=== PATIENT | male | born 1940 | race Caucasian/White ===

== ENCOUNTER 2018-11-20 19:36 | Inpatient (IN) ==
[2018-11-20] MEDS ORDERED: NS 1,000 ML IV ONE (20:08)
[2018-11-20] MEDS ORDERED: SODIUM CHLORIDE 0.9% INJ ONE (20:09)
[2018-11-20] MEDS ORDERED: ROCEPHIN 1 GM in NS 50 ML IV ONE (20:09)
[2018-11-20] MEDS ORDERED: PROTONIX IV ONE (20:09)
[2018-11-20] MEDS ORDERED: MORPHINE IV ONE (20:10)
[2018-11-20 20:30] LABS: INR 0.87; PROTIME 12.5 Seconds (11.0-16.0)
[2018-11-20 20:36] LABS: BASO# 0.05 X1000 (0.0-0.2); BASO% 0.6 % (0.0-0.8); EOS# 0.23 X1000 (0.0-0.7); EOS% 2.6 % (0.0-10.0); HEMATOCRIT 40.8 % (42.0-52.0); HEMOGLOBIN 13.2 g/dL (14.0-18.0); IMM GRAN# 0.02 X1000 (0.0-0.04); IMM GRAN% 0.2 % (0.0-0.5); LYMPH# 2.03 X1000 (1.2-3.4); LYMPH% 22.8 % (20.5-51.1); MCH 29.5 PG (27-31); MCHC 32.4 g/dL (33-37); MCV 91.1 FL (81-99); MONO# 0.95 X1000 (0.11-0.59); MONO% 10.7 % (1.7-9.3); MPV 9.2 FL (7.4-10.4); NEUT# 5.63 X1000 (1.4-6.5); NEUT% 63.1 % (42.2-75.2); PLT 336 X1000 (130-400); RBC 4.48 XMIL (4.7-6.1); RDW 15.4 % (11.5-14.5); WBC 8.91 X1000 (4.8-10.8)
[2018-11-20 20:59] LABS: AGAP 10; ALB/GLOB RATIO 1.9; ALBUMIN 3.8 g/dL (3.5-5.0); ALKALINE PHOSPHATASE 43 U/L (32-122); BUN 19 mg/dL (8-22); CALCIUM 8.6 mg/dL (8.8-10.2); CHLORIDE 101 mmol/L (98-107); COSMO 281; CREATININE 1.1 mg/dL (0.7-1.2); ESTIMATED GFR > 60; GLUCOSE 156 mg/dL (70-104); GOT 18 U/L (10-34); GPT 21 U/L (10-44); POTASSIUM 4.2 mmol/L (3.5-5.1); SODIUM 138 mmol/L (136-145); TCO2 27 mmol/L (25-35); TOTAL BILIRUBIN 0.22 mg/dL (0.20-1.00); TOTAL PROTEIN 5.8 g/dL (6.3-8.3)
[2018-11-20] MEDS ORDERED: GOLYTELY PO ONE (21:05)
--- NOTE | 2018-11-20 21:45 | Diag Imaging Result Doc PS360 ---
EXAM: CT ABDOMEN/PELVIS W/O CONTRAST - 11/20/2018 HISTORY: abd pain, lower GI bleed TECHNIQUE: CT abdomen/pelvis without contrast. No contrast administered per request of the referring provider. COMPARISON: With contrast CT abdomen/pelvis of 08/21/2013 FINDINGS: There are no acute changes identified in the liver, spleen,, adrenal glands, or pancreas. There is a 2.5 cm low-density left adrenal lesion which is labeled compatible with adenoma. There are no calcified gallstones or pericholecystic inflammation identified. There is no renal stone or hydronephrosis identified. There are no substantially enlarged lymph nodes identified. There are atherosclerotic calcifications noted. 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 There is no retroperitoneal hematoma identified. There is no evidence of bowel obstruction. The appendix is unremarkable. There is colonic diverticulosis which is most extensive along the sigmoid. There is no evidence of diverticulitis. There is no free air, free fluid, or abscess identified. IMPRESSION: Colonic diverticulosis which is most extensive along the sigmoid. No evidence of diverticulitis. Stable 2.5 cm left adrenal adenoma. 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 This exam was performed using automated exposure control, adjustment of mA or kV according to patient size, and/or use of iterative reconstruction technique. Electronically signed by Bernardino Hamlin 11/20/2018 9:42 PM
[2018-11-20] MEDS ORDERED: DUONEB (A & A) INH PRN (23:26)
[2018-11-20] MEDS ORDERED: NS 1,000 ML IV SCH (23:26)
[2018-11-20] MEDS ORDERED: ZOFRAN IV PRN (23:26)
[2018-11-21] MEDS: SODIUM CHLORIDE 0.9% INJ SCH ×3 (00:08→23:41)
[2018-11-21] MEDS: PROTONIX IV SCH ×3 (00:08→23:41)
--- NOTE | 2018-11-21 00:48 | PROVIDER DOCUMENTATION ---
This chart was entered by Josefina Brown Scribe, acting as scribe for Dave Fagan MD. HPI-Abdominal Pain/GI Problem - General Chief Complaint: GI Bleed Stated Complaint: RECTAL BLEEDING/S/P COLONOSCOPY WEDNESDAY Time Seen by Provider: 11/20/18 19:47 Source: patient Allergies/Adverse Reactions: Patient Allergies Allergy/AdvReac Type Severity Reaction Status Date / Time No Known Allergies Allergy Verified 09/13/15 07:53 Home Medications: Home Medication List Medication Instructions Recorded Confirmed Last Taken Type Allopurinol 100 mg PO QAM 06/26/12 11/20/18 11/20/18 09:00 History Clopidogrel [Plavix] 75 mg PO QAM 06/26/12 11/20/18 11/20/18 09:00 History Cyanocobalamin (Vitamin B-12) 1,000 mcg PO QAM 06/26/12 11/20/18 11/20/18 09:00 History [B-12] Fish Oil/Dha/Epa [Fish Oil 1,200 1 cap PO QAM 06/26/12 11/20/18 11/20/18 09:00 History mg Fish Oil] Fluticasone/Salmeterol [Advair 1 each IH BID 06/26/12 11/20/18 11/20/18 09:00 History 250-50 Diskus] Furosemide [Lasix] 20 mg PO QAM 06/26/12 11/20/18 11/20/18 09:00 History Simvastatin 20 mg PO QAM 06/26/12 11/20/18 11/20/18 09:00 History Amlodipine [Norvasc] 5 mg PO QAM 08/02/14 11/20/18 11/20/18 09:00 History Metoprolol Tartrate 50 mg PO QAM 10/22/14 11/20/18 11/20/18 09:00 History Aspirin 81 mg PO DAILY 09/13/15 11/20/18 11/20/18 09:00 History Prednisone 10 mg PO DAILY #21 tab 10/19/18 11/20/18 11/03/18 Rx - History of Present Illness-ABD Nature of Presenting Problems: Patient is a 78 year old male who presents to the ED with generalized lower abdominal pain and rectal bleeding. Patient states symptoms started this morning. Patient states having a colonoscopy and having a mass removed 5 days ago. Patient denies nausea and vomiting. Patient states black stool and bright red blood. Abdominal Pain Onset Location: reports: other (generalized lower) Pain Radiation: reports: no radiation Quality of Pain: reports: aching Severity in ED: reports: mild Onset/Duration: reports: this morning Timing: reports: still present Activities at Onset: reports: light activity Modifying Factors: improves with: nothing Associated Symptoms: reports: denies symptoms Last BM: this afternoon Dark Stools Present?: reports: black Rectal Bleeding: reports: other (bright red blood) Rectal Pain: reports: none Emesis Description: reports: none Bruising or Bleeding Gums?: No Similar Symptoms Previously?: No Recently seen or treated by another doctor?: Yes Review of Systems - Adult - REVIEW OF SYSTEMS - ADULT Constitutional: reports: no symptoms reported Eyes: reports: no symptoms reported Ears, Nose, Mouth & Throat: reports: no symptoms reported Cardiovascular: reports: no symptoms reported Respiratory: reports: no symptoms reported Gastrointestinal: reports: abdominal pain (generalized lower), rectal bleeding. denies: nausea, vomiting Integumentary: reports: no symptoms reported Neurological: reports: no symptoms reported Psychiatric: reports: no symptoms reported Hematologic/Lymphatic: reports: no symptoms reported Allergic/Immunologic: reports: no symptoms reported Past History - Adult - PAST MEDICAL HISTORY-ADULT Review of Records: reports: Old Records Reviewed, Nursing Assessment Review, Medications Reviewed, Social history reviewed & non-contributory. Major Childhood Illnesses: reports: denies history Cardiovascular: reports: CAD, CHF, HTN, hyperlipidemia, SD Respiratory: reports: COPD Gastrointestinal: reports: GERD Obstetrical/Gynecological: reports: denies history Genitourinary: reports: denies history Musculoskeletal: reports: denies history Neurological: reports: denies history Endocrine/Immune: reports: Diabetes Other Conditions: reports: denies history - PRIOR SURGERIES/PROCEDURES Surgical/Procedure History: reports: cardiac stent, back/neck - IMMUNIZATION STATUS Childhood Immunizations: See Nurse Assessment Flu Vaccine: See Nurse Assessment - FAMILY HISTORY Family History: reviewed, not pertinent - SOCIAL HISTORY Smoking: cigarettes (former) Substance Use: denies Physical Exam-General - PHYSICAL EXAM-ADULT Initial Vital Signs Reviewed: Yes - CONSTITUTIONAL General Appearance: alert, no apparent distress - HEAD, EARS, NOSE, MOUTH & THROAT HENMT: moist mucous membranes - RESPIRATORY Respiratory: chest non-tender, lungs clear, normal breath sounds - CARDIOVASCULAR Cardiovascular: normal peripheral pulses, regular rate, rhythm - GASTROINTESTINAL (ABDOMEN) Abdominal Exam: abnormal bowel sounds (hyperactive), tenderness (diffuse lower abdominal tenderness) - GENITOURINARY Rectal Exam: black stool, other (bright red blood present on anus. BRUNILDA Godoy, chaperoning rectal exam.) - MUSCULOSKELETAL Extremity: non-tender, normal inspection - SKIN Integumentary: normal color, normal turgor, warm/dry - NEUROLOGIC Neurologic: grossly normal - PSYCHIATRIC Psych/Mental Status: normal mood/affect, oriented x 3 Progress - PLAN OF CARE/RESULTS Progress/Plan/Lab Results: Vital Signs - 8 hr 11/20/18 19:43 Temperature 97.7 F Pulse Rate 69 Respiratory Rate 18 Blood Pressure 130/89 O2 Sat by Pulse Oximetry 96 Laboratory Results - last 24 hr 11/20/18 20:12 PT 12.5 INR 0.87 Orders Category Date Time Status NPO Diet 11/22/18 Diet Enter Time Active CBC WITH ELECTRONIC DIFF [HEME] Stat Lab 11/20/18 20:12 Results CMP [COMPREHENSIVE METABOLIC PANEL] [CHEM] Stat Lab 11/20/18 20:12 Received OCCULT BLOOD DIAGNOSTIC [STOOL] Stat Lab 11/20/18 20:12 Received PROTIME WITH INR [COAG] Stat Lab 11/20/18 20:12 Completed TYPE & SCREEN [BBK] Stat Lab 11/20/18 20:12 Received 0.9% Sodium Chloride Inj [Ns] 1,000 ml Med 11/20/18 20:08 Active IV 999 mls/hr CefTRIAXONE [Rocephin] 1 gm Med 11/20/18 20:09 Active 0.9% Sodium Chloride Inj [Ns] 50 ml IV NOW Morphine Med 11/20/18 20:10 Discontinued 4 mg IV NOW ONE Pantoprazole [Protonix] Med 11/20/18 20:09 Discontinued 40 mg IV NOW ONE Sodium Chloride 0.9% Med 11/20/18 20:09 Discontinued 10 ml INJ NOW ONE Result Diagrams: 11/20/18 20:12 11/20/18 20:12 - CT/MRI 1 CT Study: Abdomen, Pelvis Impression: See EMR Report ( EXAM: CT ABDOMEN/PELVIS W/O CONTRAST - 11/20/2018 HISTORY: abd pain, lower GI bleed TECHNIQUE: CT abdomen/pelvis without contrast. No contrast administered per request of the referring provider. COMPARISON: With contrast CT abdomen/pelvis of 08/21/2013 FINDINGS: There are no acute changes identified in the liver, spleen,, adrenal glands, or pancreas. There is a 2.5 cm low-density left adrenal lesion which is labeled compatible with adenoma. There are no calcified gallstones or pericholecystic inflammation identified. There is no renal stone or hydronephrosis identified. There are no substantially enlarged lymph nodes identified. There are atherosclerotic calcifications noted. 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 There is no retroperitoneal hematoma identified. There is no evidence of bowel obstruction. The appendix is unremarkable. There is colonic diverticulosis which is most extensive along the sigmoid. There is no evidence of diverticulitis. There is no free air, free fluid, or abscess identified. IMPRESSION: Colonic diverticulosis which is most extensive along the sigmoid. No evidence of diverticulitis. Stable 2.5 cm left adrenal adenoma. 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 This exam was performed using automated exposure control, adjustment of mA or kV according to patient size, and/or use of iterative reconstruction technique. Electronically signed by Bernardino Hamlin 2018 9:42 PM 11/20/182141 Interpreting Physician: Bernardino Hamlin MD Dictated Date/Time: 11/20/182133 cc: Dave Fagan MD; None,PCP ) - CONSULTS/PCP/HOSPITALIST Notification #1 *Consult/PCP/Hospitalist*: Dr. Rajan Time Discussed: 21:01 Reason/Comments: Dr. Fagan consulted with Dr. Rajan about patient. Consult Disposition: other (colonoscopy tmw morning by Dr. Tillman.) #2 Consult: Dr. Torres Time Discussed: 21:11 Reason/Comments: Dr. Fagan consulted with Dr. Campos about patient. Consult Disposition: Admit, other (Dr. Campos states order a CT and call back with results.) Departure - Departure Date of Disposition Decision: 11/20/18 Time of Disposition Decision: 21:06 DIAGNOSIS: Fresh blood passed per rectum, Lower GI bleed Disposition: ADMITTED INPATIENT 09 Certified Medical Emergency: Emergent Condition: Serious - Critical Care Note This patient required my direct & personal management of CC.: No Attestation - Physician/ MELINDA Attestation Patient care was provided by Advanced Practice Provider:: No The physician spent face to face time with patient:: Yes Advanced Practice Provider documentation review:: Supervising physician onsite and consulted in the evaluation and care of this patient. The physician did have a face to face encounter with the patient. This chart was documented by the indicated scribe, (Josefina Brown Scribe) and accurately reflects the services I performed and decisions made by me, Dave Fagan MD, as attested by the provider's signature.
[2018-11-21 02:44] LABS: HEMATOCRIT 32.9 % (42.0-52.0); HEMOGLOBIN 10.5 g/dL (14.0-18.0)
[2018-11-21 02:45] LABS: HEMOGLOBIN A1C 5.9 % (4.8-6.0)
[2018-11-21 02:49] LABS: CALCIUM 7.8 mg/dL (8.8-10.2); CREATININE 1.3 mg/dL (0.7-1.2); POTASSIUM 4.5 mmol/L (3.5-5.1)
--- NOTE | 2018-11-21 03:10 | HISTORY AND PHYSICAL ---
PRIMARY CARE PROVIDER: None. TRAFFIC LAW ATTORNEY: Dr. Coleman. CHIEF COMPLAINT: Blood in the stool. HISTORY OF PRESENT ILLNESS: This is a 78-year-old male who comes into the emergency room. Has a past medical history of coronary artery disease status post stenting, COPD, CKD, diabetes mellitus type 2, hypertension, hyperlipidemia, who recently had a colonoscopy outpatient with Dr. Coleman. I believe this was 1-2 weeks ago. He initially felt fine afterwards. This morning, he got up and was having some abdominal discomfort. Had a bowel movement which was dark black but did have some bright red blood and clots in it. He stated that he had several more bowel movements that were very similar. He also had sharp abdominal cramping. He denied any other symptoms such as fever, chills, nausea, vomiting, hematemesis. Had no bladder complaints. He states that he did have a large polyp versus mass, I believe, removed during his colonoscopy. A CT was obtained which showed colonic diverticulosis most extensive along the sigmoid. No evidence of diverticulitis. His hemoglobin and hematocrit were stable. He will be admitted to the medical floor with GI consultation for further evaluation and treatment. PAST MEDICAL HISTORY: See HPI. PREVIOUS SURGICAL HISTORY: 1. Neck surgery from a neck fracture. 2. Left heart catheterization with stent placement. 3. Colonoscopy. FAMILY HISTORY: Positive for diabetes, hypertension and coronary artery disease. SOCIAL HISTORY: Stopped smoking in 1988. Was a 1 [id number] smoker for multiple years. Has occasional alcohol, does not drink daily. Denies IV drug use. ALLERGIES: No known drug allergies. HOME MEDICATIONS: A list of home medications has not been reconciled. The patient does take an 81 mg aspirin daily. He is also on metformin and I believe Lasix, metoprolol, omeprazole, simvastatin. Dosages are unknown. As noted, an order was placed for Nursing to reconcile home medications. These will be restarted when appropriate. REVIEW OF SYSTEMS: Fourteen point review of systems conducted with the patient. Pertinent positives listed above in the HPI. All other systems reviewed and found to be negative. PHYSICAL EXAMINATION: VITAL SIGNS: Temperature 97.7, pulse 69, respirations 18, blood pressure 130/89 , oxygen saturation 96% on room air. GENERAL: Very pleasant 78-year-old male lying in the ER stretcher, answered all questions appropriately. He is alert and oriented times 3. Family at bedside very attentive. He is in no acute distress. HEENT: Head is atraumatic, normocephalic. Pupils are equal, round, reactive to light. Extraocular eye movement is intact. Sclerae are anicteric. Conjunctiva is pink. Oral mucosa is moist. NECK: Supple. No JVD. No thyromegaly. Trachea is midline. No cervical lymphadenopathy. CARDIAC: S1, S2 appreciated. No murmurs, gallops, or rubs. LUNGS: Decreased bilaterally. Prolonged expiratory phase. No rhonchi, wheezes , rales. Symmetric rise and fall with respirations. ABDOMEN: Soft, nondistended, nontender to palpation. Hyperactive bowel sounds all 4 quadrants. No pulsatile mass. No organomegaly. EXTREMITIES: Trace bilateral lower extremity edema, nonpitting. No clubbing, cyanosis. Two-plus pedal pulses bilaterally. GENITOURINARY: No bladder distention. Patient voids. Otherwise deferred. NEUROLOGICAL: He is alert and oriented times 3. No focal or motor deficits noted. Otherwise nonfocal examination. INTEGUMENTARY: Appropriate color for race. No acute lesions or rash. DIAGNOSTIC DATA: CT of the abdomen shows colonic diverticulosis most extensive along the sigmoid. No evidence of diverticulitis. A stable 2.5 cm left adrenal adenoma. LABORATORY DATA: WBC 8.91. Hemoglobin 13.2. Hematocrit 40.8. Platelet count 336. Coagulation studies within normal limits. Chemistry within normal limits other than a glucose of 156. ASSESSMENT AND PLAN: 1. Gastrointestinal bleed. This appears to be a combination of upper and lower GI bleed. Clear liquids until midnight, NPO thereafter. Trend hemoglobin and hematocrit. They are stable at this point. Does not appear that he will need transfusion. Consult Dr. Rajan. Protonix 40 mg IV q.12 hours. 2. Diabetes mellitus type 2. We will hold metformin. Sliding scale insulin with fingerstick blood sugars. Check hemoglobin A1c. 3. Hyperlipidemia. Continue statin. 4. Hypertension. Continue home medication. 5. Chronic obstructive pulmonary disease. We will continue home nebulizers when these have been reconciled. He is not in exacerbation, will not need any steroids. Oxygen per protocol. 6. Coronary artery disease. Continue home medications. Further recommendations per patient clinical course. Dictated by JORGE Das for Raffi Torres MD cc: JORGE Das Agree with the above. The following is my on face to face assessment. Patient with recent colonoscopy and large polyp/mass removal. now with melena and bright red blood per rectum. endorses some crampy abd pain but no tenderness on exam and CT without clear evidence of perforation. will keep npo, place on protonix drip, monitor blood counts, and consult GI for likely endoscopy. CARRIED
[2018-11-21] MEDS: HUMALOG SUBQ SCH ×3 (06:44→16:30)
[2018-11-21 08:39] LABS: HEMATOCRIT 30.2 % (42.0-52.0); HEMOGLOBIN 9.3 g/dL (14.0-18.0)
[2018-11-21] MEDS ORDERED: XYLOCAINE-MPF 2% ONE (10:15)
[2018-11-21] MEDS ORDERED: DIPRIVAN 1% ONE (10:15)
[2018-11-21] MEDS ORDERED: FENTANYL ONE (10:16)
[2018-11-21] MEDS ORDERED: EPHEDRINE ONE (11:00)
[2018-11-21] MEDS ORDERED: EPINEPHRINE SYRINGE ONE (11:14)
[2018-11-21] MEDS: LOPRESSOR PO SCH (12:44)
[2018-11-21] MEDS: ZOCOR PO SCH (12:44)
[2018-11-21] MEDS: ZYLOPRIM PO SCH (12:44)
[2018-11-21] MEDS: NORCO-5 PO SCH (12:45)
[2018-11-21] MEDS: NS 1,000 ML IV SCH (14:10)
[2018-11-21 15:28] LABS: BASO# 0.05 X1000 (0.0-0.2); BASO% 0.6 % (0.0-0.8); EOS# 0.13 X1000 (0.0-0.7); EOS% 1.5 % (0.0-10.0); HEMATOCRIT 25.9 % (42.0-52.0); IMM GRAN# 0.03 X1000 (0.0-0.04); IMM GRAN% 0.4 % (0.0-0.5); LYMPH# 1.71 X1000 (1.2-3.4); LYMPH% 20.4 % (20.5-51.1); MCH 29.6 PG (27-31); MCHC 30.9 g/dL (33-37); MCV 95.9 FL (81-99); MONO# 0.92 X1000 (0.11-0.59); MPV 9.3 FL (7.4-10.4); NEUT# 5.55 X1000 (1.4-6.5); NEUT% 66.1 % (42.2-75.2); PLT 278 X1000 (130-400); RDW 15.8 % (11.5-14.5); WBC 8.39 X1000 (4.8-10.8)
--- NOTE | 2018-11-21 15:35 | OPERATIVE NOTE ---
PROCEDURE DATE: 11/21/2018 REQUESTING PHYSICIAN: Dr. Padilla. PRIMARY CARE DOCTOR: Dr. Bills. PRIMARY STUDIO MANAGER: Dr. Coleman. PREOPERATIVE DIAGNOSES: 1. Rectal bleeding. 2. Colonoscopy on 11/15/2018 had a polypectomy at hepatic flexure. 3. History of aspirin use, last dose was 2 days ago. 4. Anemia with a drop in hematocrit to 30%. POSTOPERATIVE DIAGNOSES: 1. Blood throughout the colon with clots visualized, was fair. There were evidence of clots, so the colon was lavaged and removed. There was evidence of a polypectomy at the site of hepatic flexure. This is showing a visible vessel. This was treated with epinephrine injection and hemoclipping successfully. 2. Diverticulosis in the descending sigmoid colon, severe. PROCEDURE PERFORMED: Colonoscopy with hemostasis. SURGEON: Joe Tillman M.D. ANESTHESIA: ESTIMATED BLOOD LOSS: None associated with the procedure, although the colon was full of old blood and fresh blood with clots. SPECIMENS: None. DESCRIPTION OF PROCEDURE: After obtaining informed consent, the patient was explained the risks, benefits, indications, and alternatives to the procedure for colonoscopy. The risks of the procedure, including infection, bleeding, pain, trauma to the surrounding structures, perforation, , were explained to the patient, among others, and he acknowledged and agreed to proceed with the procedure. The patient was brought to the OR. He was turned on the left lateral position. Rectal exam was performed, which revealed normal rectal tone. No masses felt. Blood was noted on the examining finger. The colonoscope was introduced and advanced all the way to the cecum. Cecum was identified using landmarks, ileocecal valve, and appendiceal orifice. The bowel prep was fair. There was a lot of retained old and fresh blood with clots, and some scattered stool debris. This was blocking the channel. The area was lavaged. There was evidence of diverticulosis in the sigmoid and descending colon, [id number]. The prior polypectomy site from 11/15/2018 was identified in the hepatic flexure. This had a visible vessel. This was treated with epinephrine, a total of 3 mL injected in different quadrants, followed by Hemoclipping. There was evidence of fresh and old blood with clots throughout the colon, which could not be completely cleared, so it is possible that he could have another source of bleeding, like AVM or diverticular. The air and scope were removed from the patient. Patient is now being monitored in the OR in stable condition. RECOMMENDATIONS: The patient will be n.p.o., except ice chips for today, and if his hematocrit stabilizes, will start him on a clear liquid diet tomorrow. Will check CBC every 6 hours. Transfuse to keep hematocrit more than 27%. Will hold his aspirin for now. We will keep a close follow up on the patient. I have discussed above plan with the patient, as well as the patient's family, and all questions were answered. Please call us with any further questions. cc: MD Mary Islas MD Alexis R. Penot, MD Thomas P. Short, MD MTDD
[2018-11-21] MEDS: NICODERM PATCH TD SCH (15:38)
--- NOTE | 2018-11-21 16:10 | PROGRESS NOTE ---
DATE: 11/21/2018 SUBJECTIVE: Resting comfortable in bed. OBJECTIVE: Vital signs: Temperature 97.5 degrees, pulse 56, respirations 18, blood pressure 129/76, oxygen saturation 100%. HEENT: Atraumatic, normocephalic. Cardiovascular: S1, S2. Respiratory system: Evidence of good air entry bilaterally. Abdomen: Soft, nontender. No masses felt. Extremities: No evidence of significant edema. Central nervous system: No obvious focal deficit noted. LABORATORY DATA: Hematocrit 25.9, platelet count 278,000. Sodium 139, potassium 4.5, chloride 104, bicarb 28, BUN 20 creatinine 1.3. ASSESSMENT AND PLAN: 1. Gastrointestinal bleed. Maintain patient on proton pump inhibitor. Gastroenterology consulted. 2. Profound anemia, most likely secondary to gastrointestinal blood loss. Continue to follow up on hemoglobin and hematocrit. Transfuse packed red blood cells as needed. 3. Diabetes mellitus. Monitor blood sugar levels. Maintain patient on sliding scale insulin. 4. Hyperlipidemia. Continue statins. 5. Hypertension. Cautious with the use of antihypertensives in light of ongoing gastrointestinal bleed. 6. Chronic obstructive pulmonary disease. Use nebulized bronchodilators as needed. 7. Coronary artery disease. Asymptomatic. Check serial cardiac enzymes. 8. Deep vein thrombosis prophylaxis. Sequential compression devices. 9. Gastrointestinal prophylaxis. The patient is on proton pump inhibitor. cc: Chun Elizalde MD
--- NOTE | 2018-11-21 16:13 | Diag Imaging Result Doc PS360 ---
CHEST-1 VIEW - 11/21/2018 INDICATION: copd COMPARISON: 10/19/2018 FINDINGS: The lungs are normally expanded and clear. Heart size and mediastinal contours are normal. No pneumothorax or pleural effusion. IMPRESSION: Negative exam. Electronically signed by Wally Rizo 11/21/2018 4:11 PM
--- NOTE | 2018-11-21 16:25 | EKG Report ---
Test Performed on : 11/21/2018 4:01:10 PM Test Reason : cad Blood Pressure : / mmHG Vent. Rate : 056 BPM Atrial Rate : 056 BPM P-R Int : 164 ms QRS Dur : 088 ms QT Int : 450 ms P-R-T Axes : 060 -60 269 degrees QTc Int : 434 ms Sinus bradycardia. Left axis deviation Low voltage QRS Septal infarct (cited on or before 02-AUG-2014) Abnormal ECG When compared with ECG of 19-OCT-2018 18:37, (Unconfirmed) Questionable change in initial forces of Septal leads Confirmed by Guille Reyna MD ([id number]) on 11/22/2018 7:02:37 AM
--- NOTE | 2018-11-21 19:27 | CONSULTATION ---
DATE OF CONSULTATION: 11/21/2018 HISTORY OF PRESENT ILLNESS: Mr. Viet Dexter is a 78-year-old white male who recently underwent colonoscopy by Dr. Coleman and had a polypectomy at the hepatic flexure. He was admitted on 11/20/2018 through our emergency department with blood per rectum. He underwent colonoscopy again by Dr. Tillman today and he had some injection and clip placement from the polypectomy site, hepatic flexure, but he also has extensive diverticulosis and we were asked to evaluate him because of his lower GI bleed. PAST MEDICAL HISTORY: Neck surgery, left heart catheterization with coronary artery stent placement. COPD. Diabetes mellitus type 2. Hypertension, hyperlipidemia. FAMILY HISTORY: Positive for diabetes, hypertension, coronary artery disease. SOCIAL HISTORY: He stopped smoking in 1988. He drinks occasional alcohol. ALLERGIES: No known drug allergies. MEDICATIONS: He is on 81 mg aspirin daily. Metformin, Lasix, metoprolol, omeprazole, simvastatin. REVIEW OF SYSTEMS: A 14-point review of systems was performed and was essentially negative except for the history of present illness. PHYSICAL EXAMINATION: General: Mr. Dexter is an overweight older white male. He is awake, cooperative. He is in no acute distress. He does not look pale. He is receiving a unit of blood. He states he has had no bloody bowel movements since his colonoscopy. He has no jaundice. No oral lesions. No cervical or supraclavicular lymphadenopathy. Heart: Regular rate. Lungs: Clear to auscultation and percussion bilaterally. Abdomen: Protuberant but soft. There is no tenderness. No previous scar. No evidence of hernia. No costovertebral tenderness. Rectal: Examination was not performed. He does have palpable peripheral pulses. No peripheral edema. Neurological: He is alert and oriented x3 and appropriate. IMPRESSION: Lower GI bleed in a patient with recent polypectomy, hepatic flexure and also extensive diverticulosis. I have spoken with Dr. Tillman his evidence technician about the bleeding sites. He did clip and inject the polypectomy site with epinephrine. He does have extensive diverticulosis. He is receiving his 1st unit of packed red blood cells right now. He has no clinical evidence of active bleeding, this evening. We will follow along. cc: Gissel Severino MD
[2018-11-21 20:49] LABS: BASO# 0.04 X1000 (0.0-0.2); BASO% 0.5 % (0.0-0.8); EOS# 0.24 X1000 (0.0-0.7); EOS% 2.9 % (0.0-10.0); HEMATOCRIT 28.3 % (42.0-52.0); HEMOGLOBIN 8.9 g/dL (14.0-18.0); IMM GRAN# 0.05 X1000 (0.0-0.04); IMM GRAN% 0.6 % (0.0-0.5); LYMPH# 1.89 X1000 (1.2-3.4); LYMPH% 22.7 % (20.5-51.1); MCH 29.6 PG (27-31); MCHC 31.4 g/dL (33-37); MONO# 0.91 X1000 (0.11-0.59); MONO% 10.9 % (1.7-9.3); NEUT% 62.4 % (42.2-75.2); PLT 266 X1000 (130-400); RBC 3.01 XMIL (4.7-6.1); RDW 15.6 % (11.5-14.5); WBC 8.33 X1000 (4.8-10.8)
[2018-11-22 03:20] LABS: BASO# 0.04 X1000 (0.0-0.2); BASO% 0.6 % (0.0-0.8); EOS# 0.25 X1000 (0.0-0.7); EOS% 3.4 % (0.0-10.0); HEMATOCRIT 29.5 % (42.0-52.0); HEMOGLOBIN 9.3 g/dL (14.0-18.0); IMM GRAN# 0.03 X1000 (0.0-0.04); IMM GRAN% 0.4 % (0.0-0.5); LYMPH# 1.86 X1000 (1.2-3.4); LYMPH% 25.7 % (20.5-51.1); MCH 28.9 PG (27-31); MCHC 31.5 g/dL (33-37); MCV 91.6 FL (81-99); MONO# 0.71 X1000 (0.11-0.59); MONO% 9.8 % (1.7-9.3); MPV 8.9 FL (7.4-10.4); NEUT# 4.36 X1000 (1.4-6.5); NEUT% 60.1 % (42.2-75.2); PLT 230 X1000 (130-400); RBC 3.22 XMIL (4.7-6.1); RDW 16.7 % (11.5-14.5); WBC 7.25 X1000 (4.8-10.8)
[2018-11-22] MEDS: HUMALOG SUBQ SCH ×5 (03:59→22:19)
[2018-11-22 06:22] LABS: BASO# 0.05 X1000 (0.0-0.2); BASO% 0.6 % (0.0-0.8); EOS# 0.25 X1000 (0.0-0.7); EOS% 3.2 % (0.0-10.0); HEMATOCRIT 29.4 % (42.0-52.0); HEMOGLOBIN 9.4 g/dL (14.0-18.0); IMM GRAN# 0.03 X1000 (0.0-0.04); IMM GRAN% 0.4 % (0.0-0.5); LYMPH# 1.73 X1000 (1.2-3.4); LYMPH% 22.3 % (20.5-51.1); MCH 29.3 PG (27-31); MCV 91.6 FL (81-99); MONO# 0.79 X1000 (0.11-0.59); MONO% 10.2 % (1.7-9.3); MPV 9.2 FL (7.4-10.4); NEUT# 4.92 X1000 (1.4-6.5); NEUT% 63.3 % (42.2-75.2); PLT 236 X1000 (130-400); RBC 3.21 XMIL (4.7-6.1); RDW 16.7 % (11.5-14.5); WBC 7.77 X1000 (4.8-10.8)
[2018-11-22 06:44] LABS: AGAP 6; BUN 14 mg/dL (8-22); CHLORIDE 107 mmol/L (98-107); COSMO 283; ESTIMATED GFR > 60; GLUCOSE 94 mg/dL (70-104); POTASSIUM 4.4 mmol/L (3.5-5.1); SODIUM 142 mmol/L (136-145); TCO2 29 mmol/L (25-35)
[2018-11-22] MEDS: NS 1,000 ML IV SCH (07:12)
--- NOTE | 2018-11-22 07:44 | PROGRESS NOTE ---
DATE: 11/22/2018 SUBJECTIVE: Mr. Viet Dexter has been admitted with a lower GI bleed. He has recently had a polyp removed at the hepatic flexure and he has extensive diverticulosis. He received 2 units packed red blood cells overnight. He is awake and comfortable this morning. His abdomen is mostly soft. No tenderness. He has passed some dark blood per rectum this morning. His hematocrit is 29%. His heart rate is 62. Blood pressure 119/58, O2 saturation is 96%. He is afebrile. He remains n.p.o., except for some ice chips. PLAN: Hematocrit stabilizes. His diet can be advanced. cc: Gissel Severino MD
[2018-11-22] MEDS: ZOCOR PO SCH (09:06)
[2018-11-22] MEDS: LOPRESSOR PO SCH (09:07)
[2018-11-22] MEDS: ZYLOPRIM PO SCH (09:07)
[2018-11-22] MEDS: NORCO-5 PO SCH (09:07)
[2018-11-22] MEDS: NICODERM PATCH TD SCH (09:07)
[2018-11-22 09:11] LABS: BASO# 0.06 X1000 (0.0-0.2); BASO% 0.7 % (0.0-0.8); EOS# 0.21 X1000 (0.0-0.7); EOS% 2.4 % (0.0-10.0); HEMATOCRIT 30.6 % (42.0-52.0); HEMOGLOBIN 9.7 g/dL (14.0-18.0); IMM GRAN# 0.04 X1000 (0.0-0.04); IMM GRAN% 0.5 % (0.0-0.5); LYMPH# 1.87 X1000 (1.2-3.4); LYMPH% 21.3 % (20.5-51.1); MCH 28.8 PG (27-31); MCHC 31.7 g/dL (33-37); MCV 90.8 FL (81-99); MONO# 0.84 X1000 (0.11-0.59); MONO% 9.6 % (1.7-9.3); MPV 9.5 FL (7.4-10.4); NEUT# 5.76 X1000 (1.4-6.5); NEUT% 65.5 % (42.2-75.2); PLT 244 X1000 (130-400); RBC 3.37 XMIL (4.7-6.1); RDW 16.8 % (11.5-14.5); WBC 8.78 X1000 (4.8-10.8)
--- NOTE | 2018-11-22 12:20 | PROVIDER PROGRESS NOTE ---
Progress Note - - SUBJECTIVE: No acute overnight events. Afebrile. Patient denies any complaints this morning. He reports having some black coffee ground stools. No BRBPR. OBJECTIVE: Last Vital Signs Temp 97.5 F L 11/22/18 08:00 Pulse 55 L 11/22/18 11:00 Resp 14 11/22/18 11:00 BP 161/93 11/22/18 08:00 Pulse Ox 100 11/22/18 11:00 Height 5 ft 9 in Weight 205 lb 3 oz GEN: awake, alert, NAD HEENT: anicteric, MMM NECK: no JVD, LAD CV: RRR, no mrg PULM: CTAB, no wheezing or crackles, normal WOB ABD: soft NT/ND, NABS, no rebound or guarding EXT: no cce NEURO: nonfocal LABS: 11/22/18 08:45 WBC 8.78 Hgb 9.7 L Plt Count 244 Colonoscopy 11/21/2018 POSTOPERATIVE DIAGNOSES: 1. Blood throughout the colon with clots visualized, was fair. There were evidence of clots, so the colon was lavaged and removed. There was evidence of a polypectomy at the site of hepatic flexure. This is showing a visible vessel. This was treated with epinephrine injection and hemoclipping successfully. 2. Diverticulosis in the descending sigmoid colon, severe. A/P: Mr. Dexter is a 78 year old man with HTN, DM2, and CAD who presented with post-polypectomy lower GI bleeding s/p colonoscopy with epinephrine and endoclip placement on 11/21. Patient reports passing black stools likely representing old blood. He denies any other symptoms currently. Hgb 9.7 today after receiving 2 units of pRBCs yesterday. I expect this will lissette over the next 1-2 days. #LGIB: post-polypectomy: start clear liquid diet. Stop PPI #Anemia: trend H/H daily, transfuse as needed to maintain hgb 9.7 #HTN: mildly hypertensive: defer to primary #DM2: on SSI Will follow with you. Please call with questions
[2018-11-22] MEDS: NORVASC PO SCH (18:24)
--- NOTE | 2018-11-22 18:29 | PROGRESS NOTE ---
DATE: 11/22/2018 SUBJECTIVE: He seems to be doing okay. Sitting up in bed. No major complaints. OBJECTIVE: Vital signs: Blood pressure 153/73, heart rate of 55, respiratory rate 18, temperature 98.1 degrees. Cardiovascular: Regular rate and rhythm. Pulmonary: No wheezing or rales but increased work of breathing, though. PROBLEM LIST: 1. Gastrointestinal bleed, presumably related to diverticulosis. He is on PPI. He recently had a scope and polypectomy. There was active bleeding. It looks like he had visible vessel and was injected, which looked like that was a site of previous polypectomy. His diet has been advanced. Hemoglobin and hematocrit are stable if not somewhat improved today, so that is a jordin in the positive direction. 2. Anemia, status post hemorrhage. Again, hemoglobin and hematocrit are stable. 3. Hypertension. We will continue his regular medications and follow. 4. Shortness of breath, unclear etiology. I will repeat his plain films and see how things go. cc: Blaine Padilla MD
[2018-11-22] MEDS: ADVAIR 250/50 DISKUS INH SCH (22:50)
[2018-11-22] MEDS: DUONEB (A & A) INH SCH (22:50)
[2018-11-23] MEDS: DUONEB (A & A) INH SCH ×2 (03:40→09:56)
[2018-11-23] MEDS: HUMALOG SUBQ SCH ×3 (06:50→15:32)
[2018-11-23] MEDS ORDERED: LASIX PO SCH (09:00)
[2018-11-23] MEDS ORDERED: VITAMIN B-12 PO SCH (09:00)
[2018-11-23] MEDS: LOPRESSOR PO SCH (09:38)
[2018-11-23] MEDS: NORVASC PO SCH (09:39)
[2018-11-23] MEDS: ZYLOPRIM PO SCH (09:39)
[2018-11-23] MEDS: NICODERM PATCH TD SCH (09:39)
[2018-11-23] MEDS: ZOCOR PO SCH (09:39)
[2018-11-23] MEDS: NORCO-5 PO SCH (09:39)
--- NOTE | 2018-11-23 09:45 | PROVIDER PROGRESS NOTE ---
Progress Note - - S: No acute overnight events. Afebrile. Had nonbloody bowel movement this AM. He denies any complaints. Tolerating diet. O: Last Vital Signs Temp 97.6 F 11/23/18 08:00 Pulse 59 L 11/23/18 08:00 Resp 20 11/23/18 08:00 BP 149/66 11/23/18 08:00 Pulse Ox 99 11/23/18 08:00 Height 5 ft 9 in Weight 205 lb 3 oz GEN: awake, alert, NAD HEENT: anicteric, MMM NECK: no JVD CV: RRR, no murmurs PULM: normal WOB, CTAB ABD: soft NT, ND EXT: no cce, WWP NEURO: nonfocal LABS: 11/22/18 11/22/18 03:11 08:45 WBC 8.78 Hgb 9.3 L 9.7 L Plt Count 244 A/P: Mr. Dexter is a 78 year old man with HTN, DM2, and CAD who presented with post-polypectomy lower GI bleeding s/p colonoscopy with epinephrine and endoclip placement on 11/21. His bleeding has stopped. Hgb has stabilized. He denies any symptoms and tolerating diet. #LGIB: post-polypectomy: advance diet as tolerated; resume aspirin 81mg daily for secondary prophylaxis given history of CAD and stents #Anemia: stable; no overt bleeding #HTN: stable; resume home meds on discharge #DM2: on SSI; defer to primary Will sign off. Patient can schedule follow-up with Dr. Tillman upon discharge. He would like to switch providers. Please call with questions
[2018-11-23] MEDS: ADVAIR 250/50 DISKUS INH SCH (09:56)
[2018-11-23 10:15] LABS: HEMATOCRIT 30.3 % (42.0-52.0); HEMOGLOBIN 9.6 g/dL (14.0-18.0); MCH 29.1 PG (27-31); MCHC 31.7 g/dL (33-37); MCV 91.8 FL (81-99); MPV 9.3 FL (7.4-10.4); RBC 3.3 XMIL (4.7-6.1); RDW 16.2 % (11.5-14.5); WBC 7.66 X1000 (4.8-10.8)
[2018-11-23 15:24] VITALS: BP 143/77
== END 2018-11-23 16:21 | disposition home or self-care (01) | DRG 378 ==
LOC: ED 19:36 → SUATTDRO 22:19 → 4N 22:19
PROVIDERS: ATTEND Internal Medicine
CPT/HCPCS: 36430; 71010; 71045; 74176; 80048; 80053; 82272; 82948; 83036; 84484; 85014; 85018; 85025; 85027; 85610; 86850; 86900; 86901; 86920; 93005; 93010; 94640; 94761; 96365; 96375; 99285; A9270; C9113; J0171; J0696; J2270; J3010; J7030; P9016; S0164; XXXXX